=== PATIENT | female | born 1985 | race Caucasian/White ===

== ENCOUNTER → 2016-03-30 | Outpatient (CLI) | payer OTHER ==
[2016-03-30 14:27] LABS: THYROID STIMULATING HORMONE 2.61 uIu/ml (0.300-4.500)
== END | disposition home or self-care (01) ==
LOC: C.LABSPEC 13:42
PROVIDERS: ATTEND Family Medicine
DX: M25.50 Pain in unspecified joint (principal)

== ENCOUNTER → 2016-06-29 | Outpatient (CLI) | payer OTHER | END | disposition home or self-care (01) | LOC: C.LABSPEC 18:05 | PROVIDERS: ATTEND Family Medicine | DX: J02.9 Acute pharyngitis, unspecified (principal) ==

== ENCOUNTER → 2016-08-07 | Outpatient (CLI) | payer OTHER ==
[2016-08-07 18:14] LABS: BASO % 0.2 %; BASO ABS # 0.02 K/uL (0-0.2); COMPLETE YES; EOS % 0.9 %; HEMATOCRIT 41.3 % (37-47); IG% 0.2 %; LYMPH % 26.9 %; LYMPH ABS # 2.56 K/uL (1.2-3.4); MEAN CELL VOLUME 94.9 fL (80-100); MEAN CORPUSCULAR HEMOGLOBIN 32.4 pg (25-34); MEAN CORPUSCULAR HGB CONC 34.1 g/dl (32-36); MEAN PLATELET VOLUME 9.6 fL (7.4-10.4); NEUT % 64.8 %; PLATELET COUNT 276 K/uL (130-400); RED BLOOD COUNT 4.35 M/uL (4.2-5.4); WHITE BLOOD COUNT 9.51 K/uL (4.8-10.8)
[2016-08-07 18:28] LABS: ALT/SGPT 26 U/L (12-78); AST/SGOT 16 U/L (15-37); BLOOD UREA NITROGEN 5 mg/dl (7-18); BUN/CREATININE RATIO 6.6 (10-20); CALCIUM 9.2 mg/dl (8.5-10.1); CARBON DIOXIDE 24 mmol/L (21-32); CHLORIDE 108 mmol/L (98-107); CHOLESTEROL 147 mg/dl (0-200); GLUCOSE 78 mg/dl (70-99); POTASSIUM 3.4 mmol/L (3.5-5.1); SODIUM 141 mmol/L (136-145); TRIGLYCERIDES 142 mg/dl (0-150); VERY LOW DENSITY LIPOPROT CALC 28 mg/dl
[2016-08-07 18:36] LABS: ALKALINE PHOSPHATASE 72 U/L (45-117); CHOLESTEROL/HDL RATIO 4.9; HDL CHOLESTEROL 30 mg/dl; LDL CHOLESTEROL CALCULATED 89 mg/dl
== END | disposition home or self-care (01) ==
LOC: C.LABSPEC 09:59
PROVIDERS: ATTEND Family Medicine
DX: Z00.00 Encounter for general adult medical examination without abnormal findings (principal); F41.1 Generalized anxiety disorder; Z68.35 Body mass index [BMI] 35.0-35.9, adult

== ENCOUNTER → 2017-02-27 | Outpatient (CLI) | payer OTHER ==
--- NOTE | 2017-02-27 09:57 | DIAGNOSTIC IMAGING REPORT ---
SINUSES WITH BRAIN LAB HISTORY: 32 years-old Female CHRONIC SINUSITIS COMPARISON: None available TECHNIQUE: Multiple axial CT images of the paranasal sinuses were obtained without contrast. A dose lowering technique was used consistent with the principals of ISIDORO. FINDINGS: The left mastoid air cells and bilateral middle ear cavities are clear. A few inferior right mastoid air cells are mildly opacified. Left maxillary sinus is clear. There is minimal mucosal thickening of the inferior right maxillary antrum. The bilateral frontal sinuses are clear. There is minimal mucosal thickening involving a few anterior right and posterior left ethmoid air cells. The right sphenoid sinus is clear. There is moderate mucosal thickening with central bubbly secretions within the left sphenoid sinus. Mild mucosal thickening without occlusion involving the bilateral sphenoethmoidal recesses. The bilateral frontoethmoidal recesses are patent with only minimal mucosal thickening on the right. The bilateral maxillary ostiomeatal units are patent. No Ilia cell identified. Katie fern appears normal. Mild leftward bowing and spurring of the nasal septum. Soft tissues are unremarkable. Orbits appear symmetric. The imaged intracranial structures demonstrate no acute abnormality. IMPRESSION: 1. Mostly mild paranasal sinus disease as above without evidence of ostiomeatal occlusive disease. 2. Mild leftward bowing and spurring of the nasal septum. The above report was generated using voice recognition software. It may contain grammatical, syntax or spelling errors. Electronically signed by: Raji Barahona M.D. 02/27/2017 9:55 AM Dictated Date/Time: 02/27/2017 9:51 AM
== END | disposition home or self-care (01) ==
LOC: C.CTS 09:32
PROVIDERS: ATTEND Otolaryngology
DX: J32.9 Chronic sinusitis, unspecified (principal); J34.2 Deviated nasal septum

== ENCOUNTER → 2017-06-05 | Outpatient (CLI) | payer OTHER ==
[~2017-06-05] MED LIST: ATOR10TA82 PO; CHOL200010 PO; GABA-112 PO; LEVO-366 PO; MULT-506 PO; NABU750T PO; OMEP40CA41 PO; OXYC-57 PO; VENL150C PO
== END | disposition home or self-care (01) ==
LOC: C.LABSPEC 18:00
PROVIDERS: ATTEND Family Medicine
DX: N91.2 Amenorrhea, unspecified (principal)

== ENCOUNTER → 2017-09-04 | Outpatient (CLI) | payer OTHER ==
[~2017-09-04] MED LIST changes: -NABU750T PO; -VENL150C PO; +VENL150C71 PO; +[UNRECOGNIZED DRUG - CODE] PO
[2017-09-04 18:37] LABS: BASO % 0.3 %; BASO ABS # 0.03 K/uL (0-0.2); EOS % 0.8 %; EOS ABS # 0.07 K/uL (0-0.5); HEMATOCRIT 42.6 % (37-47); HEMOGLOBIN 14.2 g/dL (12.0-16.0); IG# 0.01 K/uL (0.00-0.02); LYMPH % 33.1 %; LYMPH ABS # 3.07 K/uL (1.2-3.4); MEAN CELL VOLUME 96.2 fL (80-100); MEAN CORPUSCULAR HEMOGLOBIN 32.1 pg (25-34); MEAN CORPUSCULAR HGB CONC 33.3 g/dl (32-36); MEAN PLATELET VOLUME 10.6 fL (7.4-10.4); MONO % 8.4 %; MONO ABS # 0.78 K/uL (0.11-0.59); NEUT % 57.3 %; NEUT ABS # 5.31 K/uL (1.4-6.5); PLATELET COUNT 259 K/uL (130-400); RED CELL DISTRIBUTION WIDTH CV 13.1 % (11.5-14.5); RED CELL DISTRIBUTION WIDTH SD 45.9 fL (36.4-46.3); WHITE BLOOD COUNT 9.27 K/uL (4.8-10.8)
[2017-09-04 18:59] LABS: ALBUMIN 3.7 gm/dl (3.4-5.0); ALKALINE PHOSPHATASE 60 U/L (45-117); ALT/SGPT 21 U/L (12-78); AST/SGOT 19 U/L (15-37); BLOOD UREA NITROGEN 8 mg/dl (7-18); CALCIUM 8.6 mg/dl (8.5-10.1); CARBON DIOXIDE 23 mmol/L (21-32); CREATININE 0.95 mg/dl (0.60-1.20); GLUCOSE 87 mg/dl (70-99); LIPASE 157 U/L (73-393); POTASSIUM 3.3 mmol/L (3.5-5.1); SODIUM 138 mmol/L (136-145); TOTAL PROTEIN 7.2 gm/dl (6.4-8.2)
== END | disposition home or self-care (01) ==
LOC: C.LABSPEC 18:02
PROVIDERS: ATTEND Family Medicine
DX: R10.84 Generalized abdominal pain (principal); R00.2 Palpitations